=== PATIENT | male | born 1960 | race Caucasian/White ===

== ENCOUNTER 2020-05-31 13:35 | Emergency (ER) | payer SELFPAY ==
--- NOTE | 2020-05-31 13:59 | ER Document Report ---
ED Medical Screen (RME) - General Chief Complaint: Flank Pain Stated Complaint: BACK PAIN Time Seen by Provider: 05/31/20 13:48 Primary Care Provider: YESY JUNG [Primary Care Provider] - Follow up as needed Mode of Arrival: Wheelchair Information source: Patient Notes: 59-year-old male presents to ED for complaint of right flank pain. He states he was sent over here by the another doctor time that he might have a collapsed lung. He does have equal breath sounds bilaterally. He does have extreme tenderness to the right kidney area. He states it started on and will be just feels severe then it would get better then will go away and then will come back. He is a former smoker drinks 3 glasses of liquor a week self- employed [employer] and lives with his sister. He is alert oriented respirations regular nonlabored speaking in full sentences. He states he has been going to chiropractor since the for some low back pain and he recently had shoulder surgery for tears arthritis and bone spurs. He is alert oriented respirations regular nonlabored his O2 sat is 97% at this time. I have greeted and performed a rapid initial assessment of this patient. A comprehensive ED assessment and evaluation of the patient, analysis of test results and completion of medical decision making process will be conducted by an additional ED providers. Physical Exam - Vital signs Vitals: Temp Pulse Resp BP Pulse Ox 98 F 98 20 151/92 H 97 05/31/20 13:50 05/31/20 13:50 05/31/20 13:50 05/31/20 13:50 05/31/20 13:50 Course - Vital Signs Vital signs: Temp Pulse Resp BP Pulse Ox 98 F 98 20 151/92 H 97 05/31/20 13:50 05/31/20 13:50 05/31/20 13:50 05/31/20 13:50 05/31/20 13:50 Doctor's Discharge - Discharge Referrals: YESY JUNG [Primary Care Provider] - Follow up as needed
--- NOTE | 2020-05-31 15:07 | RADIOLOGY REPORT (SQ) ---
EXAM DESCRIPTION: CHEST 2 VIEWS IMAGES COMPLETED DATE/TIME: 05/31/2020 1:44 pm REASON FOR STUDY: Pain lower right chest right flank COMPARISON: None. EXAM PARAMETERS: NUMBER OF VIEWS: two views TECHNIQUE: Digital Frontal and Lateral radiographic views of the chest acquired. RADIATION DOSE: NA LIMITATIONS: none FINDINGS: LUNGS AND PLEURA: No opacities, masses or pneumothorax. No pleural effusion. MEDIASTINUM AND HILAR STRUCTURES: No masses or contour abnormalities. HEART AND VASCULAR STRUCTURES: Heart normal size. No evidence for failure. BONES: No acute findings. HARDWARE: None in the chest. OTHER: No other significant finding. IMPRESSION: NO ACUTE RADIOGRAPHIC FINDING IN THE CHEST. TECHNICAL DOCUMENTATION: JOB ID: [id number] 2010 [employer]- All Rights Reserved Reading location - IP/workstation name: [email or web address]
[2020-05-31 15:24] LABS: ABSOLUTE BASOPHILS # (AUTO) 0.1 10^3/uL (0.0-0.2); ABSOLUTE EOSINOPHILS # (AUTO) 0.1 10^3/uL (0.0-0.6); ABSOLUTE LYMPHOCYTES (AUTO) 1.8 10^3/uL (0.5-4.7); ABSOLUTE MONOCYTES (AUTO) 0.6 10^3/uL (0.1-1.4); ABSOLUTE NEUT (AUTO) 4.7 10^3/uL (1.7-8.2); EOSINOPHILS % (AUTO) 1.3 % (0-6); HEMATOCRIT 46.5 % (37.9-51.0); HEMOGLOBIN 16.7 g/dL (13.5-17.0); LYMPHOCYTES % (AUTO) 24.5 % (13-45); MEAN CORPUSCULAR HEMOGLOBIN 33.3 pg (27.0-33.4); MEAN CORPUSCULAR VOLUME 93 fl (80-97); MONOCYTES % (AUTO) 8.4 % (3-13); PLATELET COUNT 225 10^3/uL (150-450); RED BLOOD COUNT 5.02 10^6/uL (4.35-5.55); RED CELL DISTRIBUTION WIDTH 13.3 % (11.5-14.0); SEGMENTED NEUTROPHILS % (AUTO) 64.8 % (42-78); TOTAL CELLS COUNTED % (AUTO) 100 %; WHITE BLOOD COUNT 7.2 10^3/uL (4.0-10.5)
[2020-05-31 15:43] LABS: ALBUMIN 4.5 g/dL (3.5-5.0); ALKALINE PHOSPHATASE 85 U/L (38-126); ANION GAP 11 (5-19); ASPARTATE AMINO TRANSFERASE 29 U/L (17-59); BILIRUBIN,DIRECT 0.3 mg/dL (0.0-0.4); BILIRUBIN,TOTAL 0.6 mg/dL (0.2-1.3); BLOOD UREA NITROGEN 15 mg/dL (7-20); CALCIUM 9.9 mg/dL (8.4-10.2); CARBON DIOXIDE 24 mmol/L (22-30); CHLORIDE 105 mmol/L (98-107); GLUCOSE 120 mg/dL (75-110); POTASSIUM 4.1 mmol/L (3.6-5.0); TOTAL PROTEIN 7.3 g/dL (6.3-8.2)
--- NOTE | 2020-05-31 17:07 | RADIOLOGY REPORT (SQ) ---
EXAM DESCRIPTION: CT ABD/PELVIS NO ORAL OR IV IMAGES COMPLETED DATE/TIME: 05/31/2020 4:33 pm REASON FOR STUDY: Right flank pain COMPARISON: None. TECHNIQUE: CT scan of the abdomen and pelvis performed without intravenous or oral contrast. Images reviewed with lung, soft tissue, and bone windows. Reconstructed coronal and sagittal MPR images revi ewed. All images stored on PACS. All CT scanners at this facility use dose modulation, iterative reconstruction, and/or weight based d osing when appropriate to reduce radiation dose to as low as reasonably achievable (ALARA). [facility]: Dose Right [facility]: CareDose [facility]: Dose Right [facility]: Teradose 4D [facility]: Smart [employer] RADIATION DOSE: CT Rad equipment meets quality standard of care and radiation dose reduction techniq ues were employed. CTDIvol: 16.5 mGy. DLP: 1016 mGy-cm.mGy. LIMITATIONS: None. FINDINGS: LOWER CHEST: Subsegmental atelectasis noted at the left lower lobe. Trace left pleural e ffusion. Coronary artery calcifications are noted. NON-CONTRASTED LIVER, SPLEEN, ADRENALS: Evaluation limited by lack of IV contrast. The liver is enla rged measuring 20.2 cm in craniocaudal diameter. There is diffuse decreased attenuation most consist ent with fatty infiltration. PANCREAS: No peripancreatic inflammatory changes. GALLBLADDER: No identified stones by CT criteria. No inflammatory changes to suggest cholecystitis. RIGHT KIDNEY AND URETER: Assessment for masses limited by lack of IV contrast. No renal or ureteral calculi. No hydronephrosis or hydroureter. LEFT KIDNEY AND URETER: There is a 8.7 x 6.0 x 7.3 cm heterogeneous mass with peripheral linear calci fications at the interpolar region of the left kidney. There are small caliber vessels at the periph brie of this mass. No renal or ureteral calculi. No hydronephrosis or hydroureter. AORTA AND RETROPERITONEUM: Scattered atherosclerotic calcifications at the abdominal aorta and its br anches. No abdominal aortic aneurysm. No retroperitoneal masses or hemorrhage. BOWEL AND PERITONEAL CAVITY: No dilated bowel loops or inflammatory changes. No free fluid. APPENDIX: Normal. PELVIS, BLADDER, AND ABDOMINAL WALL:The urinary bladder is partially distended. No pelvic mass. No free fluid. There is a small fat containing umbilical hernia. BONES: Multilevel degenerative changes at the spine. There is a 1.8 cm sclerotic area at the anterio r aspect of T12 vertebral body. Osseous hemangioma is noted at T11 vertebral body. IMPRESSION: 1. No hydronephrosis or obstructing ureteral calculi. Large heterogeneous mass at the l eft kidney, concerning for renal cell carcinoma. Urology consult recommended. 2. Hepatomegaly. Fatty infiltration of the liver. 3. Trace left pleural effusion. Subsegmental atelectasis at the left lower lobe. 4. Coronary artery calcifications. 5. 1.8 cm sclerotic area at the anterior aspect of T12 vertebral body. Given the above findings, os seous metastasis cannot be excluded. Evaluation with MRI or bone scan may be worthwhile. COMMENT: Quality ID # [id number]: Final reports with documentation of one or more dose reduction techniques (e.g., Automated exposure control, adjustment of the mA and/or kV according to patient size, use of iterative reconstruction technique) TECHNICAL DOCUMENTATION: JOB ID: [id number] 2010 [employer]- All Rights Reserved Reading location - IP/workstation name: [email or web address]
[2020-05-31] MEDS ORDERED: KETOROLAC TROMETHAMINE 60 MG/2 ML SDV IM ONE (17:55)
--- NOTE | 2020-05-31 18:02 | ER Document Report ---
ED General - General Chief Complaint: Flank Pain Stated Complaint: BACK PAIN Time Seen by Provider: 05/31/20 13:48 Mode of Arrival: Wheelchair Information source: Patient Notes: 59-year-old man presenting to the emergency department with a complaint of back pain and possible back spasm involving the left paraspinous muscle group in the lower T-spine and upper lumbar spine region. He denies a history of a known trauma. 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 P atient states that the pain comes and sharp episodes and while he is eating still there is no acute problems but when he moves the has a sharp catching pain which feels like spasms. - Related Data Allergies/Adverse Reactions: No Known Allergies Allergy (Verified 05/31/20 14:00) Past Medical History - General Information source: Patient - Social History Smoking Status: Never Smoker Chew tobacco use (# tins/day): No Frequency of alcohol use: Occasional Drug Abuse: None Family History: Reviewed & Not Pertinent Past Surgical History: Reports: Hx Orthopedic Surgery - right shoulder Review of Systems - Review of Systems Notes: Constitutional: Negative for fever. HENT: Negative for sore throat. Eyes: Negative for visual changes. Cardiovascular: Negative for chest pain. Respiratory: Negative for shortness of breath. Gastrointestinal: Negative for abdominal pain, vomiting or diarrhea. Genitourinary: Negative for dysuria. Musculoskeletal: + Right paraspinous muscle tenderness just below the scapula and extending to the upper lumbar region., Tightness in the muscles Skin: Negative for rash. Neurological: Negative for headaches, weakness or numbness. 10 point ROS negative except as marked above and in HPI. Physical Exam - Vital signs Vitals: Temp Pulse Resp BP Pulse Ox 98 F 98 20 151/92 H 97 05/31/20 13:50 05/31/20 13:50 05/31/20 13:50 05/31/20 13:50 05/31/20 13:50 - Notes Notes: PHYSICAL EXAMINATION: Physical Exam: General: Well-nourished well-developed in no acute distress HEENT: NC/AT, pupils equal round and reactive to light, MM moist,nares clear, oropharynx clear, airway patent Neck: supple, no adenopathy, no masses. Good range of motion Lungs: clear, no wheezing, no rales no rhonchi CVS: Regular rate and rhythm no murmur gallop or rub Abdomen: Soft, active, nontender, no masses, no hepatosplenomegaly Back: Within the left paraspinous muscle group extending from below the scapular region on the left to the upper lumbar L1 region. Increased tightness and increased pain with movement. Ext: No edema, clubbing or cyanosis. Neuro: Alert and responsive, moving all 4 extremities on command, cranial nerves intact, no focal findings Skin: Intact no open lesions, no rash PSYCH: Normal mood, normal affect. Course - Vital Signs Vital signs: Temp Pulse Resp BP Pulse Ox 98.7 F 80 18 143/87 H 98 05/31/20 19:01 05/31/20 19:01 05/31/20 19:01 05/31/20 19:01 05/31/20 19:01 - Laboratory Result Diagrams: 05/31/20 15:00 05/31/20 15:00 Laboratory results interpreted by me: 05/31/20 15:00 Glucose 120 H 05/31/20 18:00 I have reviewed laboratory data and used this information for the treatment decisions regarding the patient. - Diagnostic Test Radiology reviewed: Image reviewed, Reports reviewed Radiology results interpreted by me: 05/31/20 19:13 Abdomen/Pelvis CT 05/31/20 13:59 IMPRESSION: 1. No hydronephrosis or obstructing ureteral calculi. Large heterogeneous mass at the left kidney, concerning for renal cell carcinoma. Urology consult recommended. 2. Hepatomegaly. Fatty infiltration of the liver. 3. Trace left pleural effusion. Subsegmental atelectasis at the left lower lobe. 4. Coronary artery calcifications. 5. 1.8 cm sclerotic area at the anterior aspect of T12 vertebral body. Given the above findings, osseous metastasis cannot be excluded. Evaluation with MRI or bone scan may be worthwhile. Chest X-Ray 05/31/20 14:00 IMPRESSION: NO ACUTE RADIOGRAPHIC FINDING IN THE CHEST. Discharge - Discharge Clinical Impression: Renal mass, left Left-sided back pain Qualifiers: Back pain location: back pain in unspecified location Chronicity: unspecified Qualified Code(s): M54.9 - Dorsalgia, unspecified Condition: Good Disposition: HOME, SELF-CARE Instructions: Ice Packs ([facility]), Pain Medication Injection ([facility]) Additional Instructions: You were seen in the emergency department with left-sided back pain. The CT scan revealed a mass on the left kidney. You will need to follow-up with your urologist to have further investigation of the renal mass performed. Formerly [facility] urology as an office in [place]. You have been giving the telephone number for the office to schedule an appointment for follow-up. When you call let them know that you were seen in the emergency department and had an abnormal CT scan with left kidney mass. [facility], [address] [place] [address], [facility], [address] ,telephone number [phone]. Please call for appointment on Tuesday. If your pain is worsening or if you are having other difficulties you may return to the emergency department for further evaluation and treatment HOME CARE INSTRUCTIONS & INFORMATION: Thank you for choosing us for your medical needs. We hope you're satisfied with the care you received. After you leave, you must properly care for your problem and, at the same time, observe its progress. Any condition can change. Some illnesses can change rapidly over hours or days. If your condition worsens, return to the Emergency Department or see your physician promptly. ABOUT YOUR X-RAYS AND EKG'S: If you had an EKG or X-rays taken, they have been read by the Emergency Physician. The X-rays and EKG's will also be read by a Radiologist or Risk Assessor within 24 hours. If discrepancies are noted, you will be notified by telephone. Please be certain the ED has a correct telephone number & address where you can be reached. Also, realize that some fractures or abnormalities do not show up on initial X-rays. If your symptoms continue, see your physician. ABOUT YOUR LABORATORY TEST: If you had laboratory tests, the results have been reviewed by the Emergency Physician. Some test results (for example cultures) may not be available for several days. You will be contacted if any test result shows you need additional treatment. Please be certain the ED has a correct telephone number and address where you can be reached. ABOUT YOUR MEDICATIONS: You will receive instructions on how to take your medicine on the prescription label you receive. Additional information may be provided by the Pharmacy. If you have questions afterwards, call the ED for clarification or further instructions. Some prescribed medications may cause drowsiness. Do not perform tasks such as driving a car or operating machinery without consulting your Pharmacist. If you feel you need a refill of pain medication, your condition will need re-evaluation. Please do not call for a refill of any medication. ABOUT YOUR SIGNATURE: Signature of this document acknowledges to followin. Understanding that you received emergency treatment and that you may be released before al medical problems are known or treated. Please be certain the ED has a correct phone number & address where you can be reached. 2. Acknowledgement that you will arrange for follow-up care as recommended. 3. Authorization for the Emergency Physician to provide information to your f ollow-up Physician in order to maximize your care. AT ANY TIME, IF YOUR SYMPTOMS CHANGE SIGNIFICANTLY OR WORSEN OR YOU DEVELOP NEW SYMPTOMS, RETURN TO THE EMERGENCY DEPARTMENT IMMEDIATELY FOR RE-EVALUATION. OUR GOAL IS TO PROVIDE EXCELLENT MEDICAL CARE! WE HOPE THAT WE HAVE MET YOUR EXPECTATIONS DURING YOUR EMERGENCY DEPARTMENT VISIT AND THAT YOU FEEL YOU HAVE RECEIVED EXCELLENT CARE! Prescriptions: Baclofen [Baclofen 10 mg Tablet] 10 mg PO TID #20 tab Referrals: LOCAL,NO [NO LOCAL MD] - Follow up as needed
[2020-05-31 19:11] VITALS: BP 143/87
[2020-05-31] MEDS ORDERED: HYDROCODONE/ACETAMINOPHEN 5-325 MG (6 TAB/ER DISP) PO PRN (19:22)
== END 2020-05-31 19:50 | disposition home or self-care (01) ==
LOC: ER 13:35
DX: N28.89 Other specified disorders of kidney and ureter (principal); M54.9 Dorsalgia, unspecified; R16.0 Hepatomegaly, not elsewhere classified
CPT/HCPCS: 99285; 96372; 36415; 85025; 80053; 71046; 74176; J1885